=== PATIENT | male | born 1945 | race Caucasian/White ===

== ENCOUNTER 2020-10-06 23:23 | Emergency (ER) | payer MEDICARE, SELFPAY ==
--- NOTE | 2020-10-06 23:28 | XR_ITS ---
WS: [id number] Portable AP upright chest, 10/06/2020 Clinical Data: cp Comparison: Portable chest, 05/30/2017. Findings: No nodules, masses or effusions are seen. The heart is slightly enlarged. The pulmonary vas cularity is not increased. No pneumonia or pneumothorax is seen. The aortic arch and descending aorta are tortuous. There are calcified granulomas in the left hilum and periphery of the left lung. Monit or leads are on the chest wall. XR/XR chest 1V portable [id number] Impression: 1. Atherosclerosis and cardiomegaly. 2. Old granulomatous disease.
[2020-10-06 23:29] VITALS: BP 143/72; PULSE 59; RESP 16; TEMP 36.4; O2SAT 98; BMI 22.4
[2020-10-07] MEDS: aspirin 81 mg Chew Tablet 324 MG PO (00:10)
--- NOTE | 2020-10-07 00:14 | W.ED.CHESTPA ---
HPI - Chest Pain General: Chief Complaint: Chest Pain Stated Complaint: Chest Pain, left arm pain Time Seen by Provider: 10/06/20 23:29 Source: patient Mode of arrival: ambulatory Limitations: no limitations History of Present Illness: HPI narrative: 75-year-old male who states he is having chest pain tonight. He states it is a pressure type pain since resolved. States it went down his left arm. Denies any shortness of breath. Denies any vomiting or diarrhea. Denies any worsening improving factors that he knows of. He has a history of high blood pressure no coronary artery disease history. MD complaint: chest pain Associated symptoms: Deny abdominal pain, dyspnea, fever(s), nausea or vomiting Review of Systems Const: Denies: fever(s), chills, body aches or change in appetite Eyes: Denies: blurry vision or eye discomfort ENMT: Denies: throat pain or dental pain Card: Reports: chest pain Resp: Denies: dyspnea GI: Denies: abdominal pain, nausea, vomiting or diarrhea : Denies: dysuria Musc: Denies: neck pain or back pain Skin/Breast: Denies: rash Neuro: Denies: headache(s) Psych: Denies: depression Cliff/Lymph: Denies: easy bruising All/Imm: Denies: urticaria PFSH ED PFSH: Medical History (Updated 10/07/20 @ 02:41 by Torres Loving MD) Atrial fibrillation History of hypertension Physical Exam Const: COMMON NORMALS: no acute distress, patient oriented x3 and healthy appearing HENMT: COMMON NORMALS: normocephalic and atraumatic HEAD & SCALP: normocephalic and atraumatic Eye: COMMON NORMALS: Equal, round and reactive pupils present and EOMs intact bilaterally PUPIL: Yes Equal, round and reactive pupils present Neck/C-Spine: COMMON NORMALS: full ROM and supple Chest: COMMONS NORMALS: normal inspection of the chest and normal palpation of entire chest wall Resp: COMMON NORMALS: normal respiratory effort, No retractions, No use of accessory muscles and clear to auscultation bilaterally AUSCULTATION: clear to auscultation bilaterally Cardio: COMMON NORMALS: regular rate, regular rhythm and No murmurs present (Cardio) RATE: regular rate RHYTHM: regular rhythm GI: COMMON NORMALS: Normal to inspection, nondistended, normoactive bowel sounds present, Soft to palpation, non-tender and no masses PALPATION: Yes Soft to palpation Extremity: COMMON NORMALS: normal to inspection and full ROM Neuro: COMMON NORMALS: patient oriented x3, moves all extremities and no focal motor deficits Psych: COMMON NORMALS: mental status grossly normal, Normal thought process present and cooperative THOUGHT PROCESS: Normal thought process present Skin: COMMON NORMALS: no rashes or lesions noted and no wounds GENERAL SKIN EXAM: no rashes or lesions noted Course Vital Signs: Vital signs: Vital Signs Temperature 97.6 F 10/06/20 23:29 Pulse Rate 57 L 10/07/20 03:01 Respiratory Rate 17 10/07/20 03:01 Blood Pressure 116/71 10/07/20 03:01 Pulse Oximetry 97 10/07/20 03:01 MDM - Chest Pain MDM Narrative: Medical decision making narrative: Blaine presents here with chest pain. He is chest pain-free and his initial and repeat troponin are normal. I did offer him admission he states he feels improved and would like to follow-up with Dr. meng outpatient. We will set him appointment up with his interpretive naturalist Dr. Nazario and he is to return if worsening. He is return if he has any pain. He has no signs of pulmonary embolism or aortic dissection. He understands agrees to plan. Lab Data: Labs: Lab Results 10/07/20 10/07/20 10/07/20 Range/Units 00:17 00:17 00:17 WBC 3.0 L (4.0-10.0) 10^3/ uL RBC 3.83 L (4.1-5.3) 10^6/u L Hgb 12.0 (11.7-16.6) g/dL Hct 35.2 L (42.0-52.0) % MCV 91.9 (80-94) fL MCH 31.3 (28.0-34.0) pg MCHC 34.1 (30.0-36.0) g/dL RDW 11.9 L (12.1-15.1) % Plt Count 183 (130-400) 10^3/c mm MPV 10.1 (7.4-10.4) fL Neut % (Auto) 44.5 % Lymph % (Auto) 35.5 % [place] % (Auto) 15.8 % Eos % (Auto) 3.9 % Baso % (Auto) 0.3 % Neut # (Auto) 1.35 L (1.8-7.7) 10^3/u L Lymph # (Auto) 1.1 (0.8-4.8) 10^3/u L [place] # (Auto) 0.5 (0.2-0.9) 10^3/u L Eos # (Auto) 0.1 (0.0-0.8) 10^3/u L Baso # (Auto) 0.0 (0.0-0.1) 10^3/u L Nucleated RBC % (a uto) 0 % Nucleated RBCs # 0.0 /100WBC Sodium 134 L (136-145) mmol/L Potassium 4.3 (3.5-5.1) mmol/L Chloride 103 (98-107) mmol/L Carbon Dioxide 21 L (22-29) mmol/L Anion Gap 14.3 (5-19) BUN 22 (8-23) mg/dL Creatinine 1.2 (0.7-1.2) mg/dL GFR Calculation Not Reportable Glucose 99 (65-115) mg/dL Calculated Osmolal ity 281 L (285-295) mOsm/k g Calcium 9.0 (8.5-10.5) mg/dL Total Bilirubin 0.3 (0.15-1.2) mg/dL AST 25 (0-40) U/L ALT 20 (0-41) U/L Alkaline Phosphata se 47 (40-130) IU/L Troponin T Baselin e 21 H (0-15) ng/L Troponin T 120 Min chicken ranch (0-15) ng/L Delta Troponin T (0-10) ABS# Total Protein 8.8 H (6.6-8.7) g/dL Albumin 3.7 (3.5-5.2) g/dL Globulin 5.1 H (1.3-4.6) g/dL 10/07/20 Range/Units 02:03 WBC (4.0-10.0) 10^3/ uL RBC (4.1-5.3) 10^6/u L Hgb (11.7-16.6) g/dL Hct (42.0-52.0) % MCV (80-94) fL MCH (28.0-34.0) pg MCHC (30.0-36.0) g/dL RDW (12.1-15.1) % Plt Count (130-400) 10^3/c mm MPV (7.4-10.4) fL Neut % (Auto) % Lymph % (Auto) % [place] % (Auto) % Eos % (Auto) % Baso % (Auto) % Neut # (Auto) (1.8-7.7) 10^3/u L Lymph # (Auto) (0.8-4.8) 10^3/u L [place] # (Auto) (0.2-0.9) 10^3/u L Eos # (Auto) (0.0-0.8) 10^3/u L Baso # (Auto) (0.0-0.1) 10^3/u L Nucleated RBC % (a uto) % Nucleated RBCs # /100WBC Sodium (136-145) mmol/L Potassium (3.5-5.1) mmol/L Chloride (98-107) mmol/L Carbon Dioxide (22-29) mmol/L Anion Gap (5-19) BUN (8-23) mg/dL Creatinine (0.7-1.2) mg/dL GFR Calculation Glucose (65-115) mg/dL Calculated Osmolal ity (285-295) mOsm/k g Calcium (8.5-10.5) mg/dL Total Bilirubin (0.15-1.2) mg/dL AST (0-40) U/L ALT (0-41) U/L Alkaline Phosphata se (40-130) IU/L Troponin T Baselin e (0-15) ng/L Troponin T 120 Min chicken [place] 21.02 H (0-15) ng/L Delta Troponin T 0.02 (0-10) ABS# Total Protein (6.6-8.7) g/dL Albumin (3.5-5.2) g/dL Globulin (1.3-4.6) g/dL Imaging Data^: CXR: Attestation: I personally reviewed and interpreted this imaging study as follows: My impression: no acute abnormality EKG Data^: EKG 1: Attestation: I personally reviewed and interpreted this EKG as follows: EKG interpretation date: 10/06/20 EKG interpretation time: 23:28 Interpretation: sinus rosa m hr [address] or t wave abnormalities qrs 117 qtc 393 EKG 2: Attestation: I personally reviewed and interpreted this EKG as follows: EKG interpretation date: 10/07/20 EKG interpretation time: 01:25 Interpretation: sinus rosa m hr [address] or t wave abnormalities qrs 118 qtc 386 Discharge Plan Discharge Patient Disposition: Home Clinical Impression: Chest pain Condition: Stable Prescriptions: No Action nitroglycerin [Nitrostat] 0.4 mg tablet, sublingual 0.4 mg SUBLINGUAL Q5M PRNRF: 0 aspirin 325 mg tablet 325 mg PO DAILY RF: 0 metoprolol tartrate 25 mg tablet 12.5 mg PO BID Qty: 30 RF: 6 amlodipine 10 mg tablet 10 mg PO DIRECTED Qty: 45 RF: 3 Discharge Orders: Discharge ED (Routine); Ordered 10/07/20 Ordered By: Torres Loving Referrals: Yarelis uMrray FNP [Primary Care Provider] - Baldomero Smith MD [Physician] - 1-3 days Discharge Diet: Advance as tolerated Discharge Activity: Resume usual activity Patient Instructions: Chest Pain (ED) Coding Level of Care Code ED Electrical Continuity Tester for Chg Fwd Exam Comprehensive
[2020-10-07 00:24] LABS: Basophils % 0.3 %; Eosinophils # 0.1 10^3/uL (0.0-0.8); Eosinophils % 3.9 %; Hematocrit 35.2 % (42.0-52.0); Lymphocytes # 1.1 10^3/uL (0.8-4.8); Lymphocytes % 35.5 %; Mean Corpuscular HGB Conc 34.1 g/dL (30.0-36.0); Mean Corpuscular Hemoglobin 31.3 pg (28.0-34.0); Mean Corpuscular Volume 91.9 fL (80-94); Mean Platelet Volume 10.1 fL (7.4-10.4); Monocytes # 0.5 10^3/uL (0.2-0.9); Monocytes % 15.8 %; Neutrophils # 1.35 10^3/uL (1.8-7.7); Neutrophils % 44.5 %; Nucleated Red Blood Cells % 0 %; Platelet Count 183 10^3/cmm (130-400); Red Blood Count 3.83 10^6/uL (4.1-5.3); Red Cell Distribution Width 11.9 % (12.1-15.1)
[2020-10-07 00:43] LABS: Alanine Aminotransferase 20 U/L (0-41); Albumin Level 3.7 g/dL (3.5-5.2); Alkaline Phosphatase 47 IU/L (40-130); Aspartate Amino Transferase 25 U/L (0-40); Blood Urea Nitrogen 22 mg/dL (8-23); Carbon Dioxide 21 mmol/L (22-29); Chloride 103 mmol/L (98-107); Globulin 5.1 g/dL (1.3-4.6); Glucose 99 mg/dL (65-115); Osmolality Calculated 281 mOsm/kg (285-295); Sodium 134 mmol/L (136-145); Total Bilirubin 0.3 mg/dL (0.15-1.2); Total Protein 8.8 g/dL (6.6-8.7)
[2020-10-07 00:44] LABS: Troponin(5th) Baseline 21 ng/L (0-15)
[2020-10-07 00:47] LABS: Anion Gap 14.3 (5-19); Potassium 4.3 mmol/L (3.5-5.1)
--- NOTE | 2020-10-07 01:28 | ECG_ITS ---
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 Measurements Intervals [place] Rate: 53 P: 51 [place]: 215 QRS: 11 QRSD: 118 T: 55 QT: 403 QTc: 380 Interpretive Statements SINUS BRADYCARDIA WITH FIRST DEGREE AV BLOCK MODERATE INTRAVENTRICULAR CONDUCTION DELAY [110+ ms QRS DURATION] Compared to ECG 05/30/2017 12:20:10 First degree AV block now present Intraventricular conduction delay now present Electronically Signed On 10-08-2020 11:10:57 GAMING CASHIER by Jeffery Presley M.D. [id number]
[2020-10-07 01:29] VITALS: BP 118/73; PULSE 52; RESP 14; O2SAT 97
[2020-10-07 02:00] VITALS: BP 119/62; PULSE 53; RESP 22; O2SAT 97
[2020-10-07 02:29] LABS: Troponin 5 2HR 21.02 ng/L (0-15); Troponin 5 2HR Delta 0.02 ABS# (0-10)
[2020-10-07 03:01] VITALS: BP 116/71; PULSE 57; RESP 17; O2SAT 97
--- NOTE | 2020-10-07 11:17 | DCPLANNER ---
Tanner cantor had message to schedule a follow up with [facility]. biodiesel engineering manager called [facility], spoke with Jackie, gave clinic patients information. A follow up appointment is scheduled for Sunday, October 11, 2020 at 1:15 with SOIL CHECKER, Sharon. biodiesel engineering manager called patient with appointment information at [phone], unable to speak with patient at this time, a voicemail was left for patient to return case management social worker phone call.
--- NOTE | 2020-11-03 07:58 | DCPLANNER ---
Patient had a follow up appointment scheduled for 10.11.20 with Sharon Bansal at [facility] - appointment was cancelled.
== END 2020-10-07 02:59 | disposition home or self-care (01) ==
PROVIDERS: Emergency Provider Emergency Medicine; PCP Nurse Practitioner Family
DX: R07.9 Chest pain, unspecified (principal); Z79.82 Long term (current) use of aspirin; I10 Essential (primary) hypertension; I48.91 Unspecified atrial fibrillation
CPT/HCPCS: 12345; 36415; 71045; 80053; 84484; 85025; 93005; 99283; 99284

== ENCOUNTER → 2022-01-09 14:43 | Outpatient (BNVA) | payer MEDICARE, SELFPAY | PROVIDERS: PCP Nurse Practitioner Family; Visit Provider Internal Medicine Cardiovascular Disease | DX: I48.0 Paroxysmal atrial fibrillation (principal); I10 Essential (primary) hypertension; Z87.891 Personal history of nicotine dependence | CPT/HCPCS: 99214 ==

== ENCOUNTER 2022-08-20 09:53 | Observation (INO) | payer MEDICARE, SELFPAY ==
[2022-08-20] VITALS (8 sets, daily range): BP systolic 120–143; BP diastolic 67–82; PULSE 50–59; RESP 16–21; TEMP 36.4; O2SAT 94–100; BMI 22.4
--- NOTE | 2022-08-20 10:08 | ECG_ITS ---
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 Measurements Intervals [place] Rate: 46 P: 58 [place]: 215 QRS: 44 QRSD: 99 T: 65 QT: 418 QTc: 368 Interpretive Statements SINUS BRADYCARDIA WITH FIRST DEGREE AV BLOCK POSSIBLE LEFT ATRIAL ENLARGEMENT [-0.1mV P-WAVE IN V1/V2] MODERATE ST DEPRESSION [0.05+ mV ST DEPRESSION Compared to ECG 10/07/2020 01:25:08 ST (T wave) deviation now present Intraventricular conduction delay no longer present Electronically Signed On 08-20-2022 19:48:13 REMEDIAL READING TEACHER by Jeffery Presley M.D. [id number]
--- NOTE | 2022-08-20 10:17 | XR_ITS ---
WS: [id number] Exam: XR chest 1V portable [id number] Date/Time of Exam: 08/20/2022 10:27 AM Reason For Exam: chest pain Comparison 10/06/2020. Mild cardiac enlargement unchanged. The lungs are clear and fully expanded. Ther e is widening of the superior mediastinum and mild leftward deviation of the trachea suggesting a med iastinal mass. No pleural effusion seen. Regional bony elements are intact. Monitoring leads superimp ose the chest. XR/XR chest 1V portable [id number] IMPRESSION: 1. Mild cardiac enlargement unchanged. No acute cardiopulmonary process noted. 2. Widening of the superior mediastinum with leftward deviation of the trachea suggesting a mediastinal mass. The appearance shows little change since 05/30/20 17. This may be a chronic finding such as a goiter. Contrast CT scanning of the chest might be considered for further workup.
[2022-08-20] MEDS: aspirin 81 mg Chew Tablet 324 MG PO (10:26)
--- NOTE | 2022-08-20 10:35 | W.ED.CHESTPA ---
HPI - Chest Pain General: Chief Complaint: Chest Pain Stated Complaint: chest pain Time Seen by Provider: 08/20/22 10:09 Source: patient Mode of arrival: ambulatory History of Present Illness: 69-year-old male presents emergency room with complaint of episodes of chest pain today. He decoupled brief episodes of chest pain very transient in nature they occurred while at rest. He tells me he had some short of cardiac evaluation in the past. The only thing I could find is an echocardiogram once he was done in 2017 he has no known history of coronary disease he is completely pain-free at this time. GeneralPatient describes a sensation as a burning sensation he felt weak he was short of breath and transiently nauseous. Resolve spontaneously within a few minutes. No recent cough fever sweats chills nausea vomiting diarrhea. MD complaint: chest pain Onset (ago): hour(s) Timing of current episode: episodic Onset: during rest Pain location: substernal Pain radiation: none Severity: mild Quality: sharp Relieving factors: nothing Exacerbating factors: nothing Associated symptoms: Reports diaphoresis, dyspnea and nausea; Deny abdominal pain, fever(s), leg edema, palpitations, sense of impending doom, syncope or vomiting Treatment prior to arrival: none Review of Systems Const: Reports: diaphoresis; Denies: fever(s), chills, fatigue or malaise ENMT: Denies: throat pain, ear or mastoid pain, nasal discharge or nasal congestion Card: Denies: chest pain, palpitations, irregular heart rhythm, edema or syncope Resp: Reports: dyspnea; Denies: productive cough, non-productive cough or wheezing GI: Reports: nausea; Denies: abdominal pain or vomiting : Denies: flank pain, dysuria, urinary frequency or urinary urgency Skin/Breast: Denies: rash or pruritus PFS ED PFSH: Medical History (Updated 08/20/22 @ 16:47 by Danielle Mendez MD) Atrial fibrillation History atrial fibrillation s/p ablation, in sinus rhythm, takes whole aspirin, declined consideration for anticoagulation in past Benign essential HTN History of syncope with moderate to severe pain Surgical History (Updated 08/20/22 @ 16:43 by Danielle Mendez MD) No pertinent past surgical history No history of surgery S/P ablation of atrial fibrillation Family History (Updated 08/20/22 @ 16:46 by Danielle Mendez MD) Father , of heart attack age 68 CAD (coronary artery disease), Onset Age: 68 Family/Other CAD (coronary artery disease) uncle Grandfather Stroke Denies family history of Diabetes Clotting disorder Dementia Chronic kidney disease (CKD) Suicide Anesthesia complication Bleeding disorder Lung disease Cancer Social History (Updated 08/20/22 @ 16:44 by Danielle Mendez MD) Smoking and tobacco status: former smoker Alcohol intake: current Alcohol use comment: rare beer Substance/Drug Use: never Lives independently: Yes Household members: spouse Marital status: Current occupational status: employed 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 Physical Exam Const: GENERAL APPEARANCE: cooperative and comfortable ORIENTATION/CONSCIOUSNESS: Yes awake, Yes oriented to person, Yes oriented to place and Yes oriented to time HENMT: COMMON NORMALS: normocephalic, atraumatic and hearing grossly normal bilaterally HEAD & SCALP: normocephalic and atraumatic Resp: COMMON NORMALS: normal respiratory effort, No retractions, No use of accessory muscles and clear to auscultation bilaterally AUSCULTATION: clear to auscultation bilaterally Cardio: COMMON NORMALS: regular rate, regular rhythm and No murmurs present (Cardio) RATE: regular rate RHYTHM: regular rhythm GI: COMMON NORMALS: Soft to palpation and No hepatosplenomegaly present AUSCULTATION: Yes normoactive bowel sounds PALPATION: Yes Soft to palpation, No Tenderness to palpation present (GI), No Guarding due to palpation present (GI) and Yes No hepatosplenomegaly present Extremity: COMMON NORMALS: normal to inspection, capillary refill normal, no clubbing, cyanosis or edema, no calf tenderness and no pedal edema Neuro: SENSORIUM/ORIENTATION: Yes oriented to person, Yes oriented to place and Yes oriented to time Skin: COMMON NORMALS: no rashes or lesions noted GENERAL SKIN EXAM: no rashes or lesions noted Course Vital Signs: Vital signs: Vital Signs Temperature 97.6 F 08/20/22 09:58 Pulse Rate 50 L 08/20/22 15:00 Respiratory Rate 20 H 08/20/22 14:00 Blood Pressure 120/74 08/20/22 15:00 Pulse Oximetry 94 08/20/22 15:00 Oxygen Delivery Me thod 08/20/22 13:30 MDM - Chest Pain Medical Decision Making Labs imaging and EKG reviewed. EKG does not show any acute ST changes. He does have a positive delta Trope of nearly +5. Given his history and his presentation he follows an intermediate risk category and should be kept on observation. He will need early cardiac testing. Medical Records I reviewed the patient's medical records. Lab Data I reviewed the patient's lab results. 08/20/22 10:35 08/20/22 10:35 Radiology Impressions Chest X-Ray 08/20/22 10:17 IMPRESSION: 1. Mild cardiac enlargement unchanged. No acute cardiopulmonary process noted. 2. Widening of the superior mediastinum with leftward deviation of the trachea suggesting a mediastinal mass. The appearance shows little change since 05/30/2017. This may be a chronic finding such as a goiter. Contrast CT scanning of the chest might be considered for further workup. Laboratory Results WBC 4.3 10^3/uL (4.0-10.0) 08/20/22 10:35 RBC 4.06 10^6/uL (4.1-5.3) L 08/20/22 10:35 Hgb 12.8 g/dL (11.7-16.6) 08/20/22 10:35 Hct 37.2 % (42.0-52.0) L 08/20/22 10:35 MCV 91.6 fl (80-94) 08/20/22 10:35 MCH 31.5 pg (28.0-34.0) 08/20/22 10:35 MCHC 34.4 g/dL (30.0-36.0) 08/20/22 10:35 RDW 11.9 % (12.1-15.1) L 08/20/22 10:35 Plt Count 186 10^3/cmm (130-400) 08/20/22 10:35 MPV 10.1 fL (7.4-10.4) 08/20/22 10:35 Neut % (Auto) 66.3 % 08/20/22 10:35 Lymph % (Auto) 25.3 % 08/20/22 10:35 [place] % (Auto) 7.2 % 08/20/22 10:35 Eos % (Auto) 0.2 % 08/20/22 10:35 Baso % (Auto) 0.5 % 08/20/22 10:35 Neut # (Auto) 2.85 10^3/uL (1.8-7.7) 08/20/22 10:35 Lymph # (Auto) 1.1 10^3/uL (0.8-4.8) 08/20/22 10:35 [place] # (Auto) 0.3 10^3/uL (0.2-0.9) 08/20/22 10:35 Eos # (Auto) 0.0 10^3/uL (0.0-0.8) 08/20/22 10:35 Baso # (Auto) 0.0 10^3/uL (0.0-0.1) 08/20/22 10:35 Nucleated RBC % (auto) 0 % 08/20/22 10:35 Nucleated RBCs # 0.0 /100WBC 08/20/22 10:35 Sodium 128 mmol/L (136-145) L 08/20/22 10:35 Potassium 4.1 mmol/L (3.5-5.1) 08/20/22 10:35 Chloride 97 mmol/L (98-107) L 08/20/22 10:35 Carbon Dioxide 22 mmol/L (22-29) 08/20/22 10:35 Anion Gap 13.1 (5-19) 08/20/22 10:35 BUN 15 mg/dL (8-23) 08/20/22 10:35 Creatinine 1.1 mg/dL (0.7-1.2) 08/20/22 10:35 GFR Calculation Not Reportable 08/20/22 10:35 Glucose 103 mg/dL (65-115) 08/20/22 10:35 Calculated Osmolality 267 mOsm/kg (285-295) L 08/20/22 10:35 Calcium 9.5 mg/dL (8.5-10.5) 08/20/22 10:35 Total Bilirubin 0.6 mg/dL (0.15-1.2) 08/20/22 10:35 AST 22 U/L (0-40) 08/20/22 10:35 ALT 17 U/L (0-41) 08/20/22 10:35 Alkaline Phosphatase 49 U/L (40-130) 08/20/22 10:35 Troponin T Baseline 18 ng/L (0-15) H 08/20/22 10:35 Troponin T 120 Minute 22.94 ng/L (0-15) H 08/20/22 12:30 Delta Troponin T 4.94 ABS# (0-10) 08/20/22 12:30 NT-Pro-B Natriuret Pep 181 pg/mL (0-450) 08/20/22 12:30 Total Protein 9.3 g/dL (6.6-8.7) H 08/20/22 10:35 Albumin 3.8 g/dL (3.5-5.2) 08/20/22 10:35 Globulin 5.5 g/dL (1.3-4.6) H 08/20/22 10:35 Discharge Plan Discharge Patient Disposition: Placed in Observation Clinical Impression: Chest pain, Benign essential HTN, Elevated troponin I level Condition: Stable Prescriptions: No Action nitroglycerin [Nitrostat] 0.4 mg tablet, sublingual 0.4 mg SUBLINGUAL Q5M PRN (Reason: Chest Pain) Rx Instructions: do not exceed 3 doses per episode aspirin 325 mg tablet 325 mg PO DAILY amlodipine 10 mg tablet See Rx Instructions .ROUTE .COMPLEX Rx Instructions: TAKE 1 TABLET BY MOUTH EVERY MORNING AND ONE-HALF TABLET EVERY NIGHT AT BEDTIME metoprolol tartrate 25 mg tablet 12.5 mg PO BID Referrals: Yarelis Murray FNP [Primary Care Provider] - Coding Level of Care Code ED Assistant Womens Volleyball Coach for Dilciag Fwd Exam Detailed
[2022-08-20 10:45] LABS: Basophils % 0.5 %; Eosinophils % 0.2 %; Hematocrit 37.2 % (42.0-52.0); Hemoglobin 12.8 g/dL (11.7-16.6); Lymphocytes # 1.1 10^3/uL (0.8-4.8); Lymphocytes % 25.3 %; Mean Corpuscular HGB Conc 34.4 g/dL (30.0-36.0); Mean Corpuscular Hemoglobin 31.5 pg (28.0-34.0); Mean Corpuscular Volume 91.6 fl (80-94); Mean Platelet Volume 10.1 fL (7.4-10.4); Monocytes # 0.3 10^3/uL (0.2-0.9); Monocytes % 7.2 %; Neutrophils # 2.85 10^3/uL (1.8-7.7); Neutrophils % 66.3 %; Nucleated Red Blood Cells % 0 %; Platelet Count 186 10^3/cmm (130-400); Red Blood Count 4.06 10^6/uL (4.1-5.3); Red Cell Distribution Width 11.9 % (12.1-15.1); White Blood Count 4.3 10^3/uL (4.0-10.0)
[2022-08-20 11:03] LABS: Troponin(5th) Baseline 18 ng/L (0-15)
[2022-08-20 11:06] LABS: Alanine Aminotransferase 17 U/L (0-41); Albumin Level 3.8 g/dL (3.5-5.2); Alkaline Phosphatase 49 U/L (40-130); Anion Gap 13.1 (5-19); Aspartate Amino Transferase 22 U/L (0-40); Blood Urea Nitrogen 15 mg/dL (8-23); Calcium 9.5 mg/dL (8.5-10.5); Carbon Dioxide 22 mmol/L (22-29); Chloride 97 mmol/L (98-107); Globulin 5.5 g/dL (1.3-4.6); Glucose 103 mg/dL (65-115); Osmolality Calculated 267 mOsm/kg (285-295); Potassium 4.1 mmol/L (3.5-5.1); Sodium 128 mmol/L (136-145); Total Bilirubin 0.6 mg/dL (0.15-1.2); Total Protein 9.3 g/dL (6.6-8.7)
--- NOTE | 2022-08-20 12:52 | ECG_ITS ---
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 Measurements Intervals [place] Rate: 52 P: 59 [place]: 214 QRS: 44 QRSD: 101 T: 69 QT: 413 QTc: 387 Interpretive Statements SINUS BRADYCARDIA WITH FIRST DEGREE AV BLOCK POSSIBLE LEFT ATRIAL ENLARGEMENT [-0.1mV P-WAVE IN V1/V2] Compared to ECG 08/20/2022 10:08:59 ST (T wave) deviation no longer present Electronically Signed On 08-20-2022 19:49:31 MAINTENANCE SERVICE SUPERVISOR by Jeffery Presley M.D. [email or web address]/[id number]
[2022-08-20 12:57] LABS: Troponin 5 2HR 22.94 ng/L (0-15); Troponin 5 2HR Delta 4.94 ABS# (0-10)
[2022-08-20] MEDS: nitroglycerin 1 gm/inch oint Pkt 0.5 INCH TOPICAL ×2 (13:44→20:57)
[2022-08-20] MEDS: enoxaparin 80 mg/0.8 mL Syringe SUBCUT (13:44)
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
--- NOTE | 2022-08-20 16:26 | USCV_ITS ---
Blaine Hernandez Age: 77 Gender: M : 1945 Exam Date: 08/20/2022 16:44 Ordering Phys: Danielle Mendez MD Technologist: Melquiades Knowles [place] [facility] [place]: chest pain BP: 143 / 82 HR: 49 Rhythm: Sinus Technical Quality: Adequate MEASUREMENTS (Male / Female) Normal Values 2D ECHO LV Diastolic Diameter PLAX 4.8 cm 4.2 - 5.9 / 3.9 - 5.3 cm LV Systolic Diameter PLAX 2.8 cm IVS Diastolic Thickness 0.9 cm 0.6 - 1.0 / 0.6 - 0.9 cm IVS Systolic Thickness 1.0 cm LVPW Diastolic Thickness 0.9 cm 0.6 - 1.0 / 0.6 - 0.9 cm LVPW Systolic Thickness 1.3 cm LVOT Diameter 2.0 cm LV Ejection Fraction 2D Teich 72.5 % LV Ejection Fraction MOD 2C 69.8 % LV Ejection Fraction 2C AL 69.3 % LA Diameter 3.2 cm LA Width 3.0 cm LA Height 4.0 cm RA Width 3.4 cm RA Height 4.6 cm Aorta at Sinotubular Diameter 2.8 cm IVC Diameter 2.0 cm M-MODE Aortic Annulus Diameter 3.1 cm LA Ao Ratio MM 1.0 MV E Point Septal Separation 0.6 cm DOPPLER AV Peak Velocity 146.7 cm/s LVOT Peak Velocity 81.0 cm/s AV Area Cont Eq vti 1.8 cm squared AV Area Cont Eq pk 1.8 cm squared MV Area PHT 3.3 cm squared Mitral E to A Ratio 0.6 MV E' Velocity 22.0 cm/s Mitral E to MV E' Ratio 6.5 Mitral E to LV E' Lateral Ratio 6.5 Mitral E to LV E' Septal Ratio 6.5 TR Peak Velocity 261.7 cm/s TR Peak Gradient 27.4 mmHg TR Mean Velocity 192.3 cm/s TR Mean Gradient 16.6 mmHg TR Velocity Time Integral 68.4 cm Right Atrial Pressure 3.0 mmHg Pulmonary Artery Systolic Pressu 30.4 mmHg PV Peak Velocity 98.0 cm/s RV Acceleration Time 0.1 s RV Ejection Time 0.3 s RV AcT/ET 0.4 FINDINGS Left Ventricle Left ventricle is normal in size. LV systolic function is normal with EF of 55 to 60%. No regional wall motion abnormalities are seen. Grade 1 diastolic dysfunction Right Ventricle Normal in size and function Right Atrium Normal in size Left Atrium Normal in size Mitral Valve Structurally normal mitral valve. Mild mitral regurgitation. Aortic Valve Structurally normal aortic valve. Mild aortic regurgitation. No significant stenosis. Tricuspid Valve Mild tricuspid regurgitation. Pulmonary artery systolic pressure is normal Pulmonic Valve Not well visualized. Mild pulmonic regurgitation. Pericardium Normal Aorta Normal in size IVC Appears to be normal CONCLUSIONS LV systolic function is normal with EF 55 to 60%. Grade 1 diastolic dysfunction Mild mitral regurgitation Mild aortic regurgitation Mild tricuspid regurgitation Mild pulmonic regurgitation Compared to prior echocardiogram from 2017, no significant changes are seen Jeffery Presley MD (Electronically Signed) Final Date: 21 August 2022 11:09 S
--- NOTE | 2022-08-20 16:29 | CTR_ITS ---
PROCEDURE INFORMATION: Exam: CT Chest With Contrast; Diagnostic Exam date and time: 08/20/2022 6:02 PM Age: 77 years old Clinical indication: Abnormal findings; Abnormal radiologic exam of lung or chest; Additional info: Widened mediastinum with deviated trachea TECHNIQUE: Imaging protocol: Diagnostic computed tomography of the chest with contrast. Radiation optimization: All CT scans at this facility use at least one of these dose optimization techniques: automated exposure control; mA and/or kV adjustment per patient size (includes targeted exams where dose is matched to clinical indication); or iterative reconstruction. Contrast material: OMNIPAQUE 350; Contrast volume: 95 ml; Contrast route: INTRAVENOUS (IV); COMPARISON: CR XR chest 1V portable [id number] 08/20/2022 10:44 AM RADIATION DOSE METRICS: Total DLP (mGy-cm): 258.76 FINDINGS: Thyroid: Right lobe of thyroid contains a 49 x 39 mm enhancing mass, with mild leftward deviation of trachea. No overt tracheal compression. Lungs: Minute left midlung benign calcified nodule. The lungs show no dominant mass or spiculated nodule. No consolidation. Minimal RML atelectasis. Pleural spaces: No pneumothorax. No pleural effusion. Heart: The heart is large. No pericardial effusion. Lymph nodes: No bulky mediastinal or hilar lymphadenopathy noted. Vasculature: Thoracic arch measures up to about 3.6 cm. No dissection. Bones/joints: No acute fracture. Soft tissues: Unremarkable. CT/CT chest w con* [id number] IMPRESSION: 1. Responsible for the history there is a 5 cm right thyroid mass. This needs to be worked up. Consider need for ultrasound and/or FNA. This causes mild leftward tracheal deviation but no real compression. No overt lymphadenopathy seen. 2. Nothing else acute is visualized. Full details are given above. 3. 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 COMMENTS: Consistent with the [employer]'s Incidental Findings Committee white paper (J Am Gudelia Radiol 2015): In patients aged 35 years and older with an incidental thyroid nodule equal to or greater than 1.[address], MRI or extrathyroidal US, further evaluation with dedicated thyroid US is recommended for patients with normal life expectancy and without comorbidities. For smaller nodules without suspicious features, no further evaluation or follow up is recommended.
[2022-08-20 17:00] LABS: NT Pro B Type Natriuretic Pept 181 pg/mL (0-450)
[2022-08-20 17:21] LABS: Troponin 5 6HR 16.98 ng/L (0-15)
[2022-08-20 17:22] LABS: Troponin 5 6HR Delta -1.02 ng/L (0-12)
[2022-08-20 17:30] LABS: Uric Acid 6.4 mg/dL (3.4-7.0)
--- NOTE | 2022-08-20 17:57 | PC.NURSE ---
attempted report to [facility] [id number], nurse was not available to take report at that time
[2022-08-20] MEDS: iohexol 350 mg/mL 500 mL Btl (per mL) IV (18:18)
[2022-08-20] MEDS: metoprolol tartrate 25 mg Tablet 12.5 MG PO (20:58)
[2022-08-20 21:01] LABS: Creatinine Urine, Random 101 mg/dL (39-259); Urine Random Sodium 69 mmol/L
[2022-08-21] VITALS: BP 138/82; PULSE 78; RESP 16; TEMP 36.9; O2SAT 94
[2022-08-21] MEDS: nitroglycerin 1 gm/inch oint Pkt 0.5 INCH TOPICAL (02:00)
[2022-08-21] MEDS: enoxaparin 80 mg/0.8 mL Syringe 70 MG SUBCUT (02:01)
[2022-08-21 04:00] VITALS: BP 116/63; PULSE 44; RESP 17; TEMP 36.6; O2SAT 95
[2022-08-21 05:30] LABS: INR 1.14 (0.8-1.2)
[2022-08-21 05:31] LABS: Partial Thromboplastin Time 36.6 SECONDS (23.9-36.7)
[2022-08-21 05:49] LABS: Alanine Aminotransferase 16 U/L (0-41); Albumin Level 3.5 g/dL (3.5-5.2); Alkaline Phosphatase 43 U/L (40-130); Anion Gap 13.5 (5-19); Aspartate Amino Transferase 21 U/L (0-40); Blood Urea Nitrogen 17 mg/dL (8-23); Calcium 9.3 mg/dL (8.5-10.5); Carbon Dioxide 22 mmol/L (22-29); Chloride 104 mmol/L (98-107); Chol HDL Ratio 6.07 mg/dL (1.0-5.00); Cholesterol 176 mg/dL (0-200); Globulin 4.7 g/dL (1.3-4.6); Glucose 98 mg/dL (65-115); HDL Cholesterol 29 mg/dL (60-100); LDL Cholesterol Calculated 128 mg/dL (50-129); LDL HDL Ratio 4.41 RATIO (0.00-3.22); Magnesium 2.1 mg/dL (1.7-2.3); Osmolality Calculated 282 mOsm/kg (285-295); Phosphorus 3.1 mg/dL (2.5-4.5); Potassium 4.5 mmol/L (3.5-5.1); Sodium 135 mmol/L (136-145); Thyroid Stimulating Hormone 7.25 uIU/mL (0.27-4.20); Total Bilirubin 0.5 mg/dL (0.15-1.2); Total Protein 8.2 g/dL (6.6-8.7); Triglycerides 93 mg/dL (0-150)
--- NOTE | 2022-08-21 06:01 | PC.NURSE ---
Nurse was notified about patients heart rate being 44.
[2022-08-21 06:16] VITALS: PULSE 47
--- NOTE | 2022-08-21 06:49 | ECG_ITS ---
[facility] Test Date: 2022-08-21 Pat Name: Blaine Hernandez Department: Room: 278 Gender: Male Swager Operator: Amie Solorio : 1945 Requested By: Danielle Mendez Order Number: [id number] Willard MD: Hansa Yoon M.D. Interpretive Statements NAME OF STUDY: LEXISCAN SESTAMIBI STRESS TEST INDICATION: Chest Pain PROCEDURE: At the baseline, the blood pressure was 130/75 mmHg, oxygen saturation 97% with a heart rate of 54 bpm. The electrocardiogram showed sinus bradycardia, normal axis with nonspecific ST depression. The Lexiscan was infused over a period of 20 seconds. A total of 0.4 milligrams of Lexiscan was infused. The stress phase was continued for a total of 5 minutes. Heart rate at the end of the stress phase was 50 bpm, oxygen saturation 99% with a blood pressure of 107/59 mmHg. The EKG at the peak infusion revealed sinus bradycardia with no significant ST-T wave changes. Sestamibi was injected 20 seconds after the Lexiscan infusion. Blood pressure at the end of the recovery phase was 97/59 mmHg, oxygen saturation 96% with a heart rate of 51 beats per minute. CONCLUSION: 1. No significant EKG changes with the LexiScan infusion. 2. No LexiScan induced chest pain or cardiac arrhythmia. 3. Normal blood pressure and heart rate response. 4. Sestamibi/sestamibi perfusion scan pending; see separate report. Electronically Signed On 08-21-2022 12:54:34 FUGITIVE INVESTIGATOR by Hansa Yoon M.D. [id number]
--- NOTE | 2022-08-21 07:00 | NMCV_ITS ---
NM mindi perf SPECT r/s* [id number] Blaine Hernandez Age: 77 Gender: M : 1945 Exam Date: 08/21/2022 06:47 Ordering Phys: Danielle Mendez MD Technologist: JOSEP Lagunas Exam Location: [facility] Indications: CHEST PAIN STRESS TEST Please see separate stress test report in [facility] for full findings IMAGE PROTOCOL Rest/Stress 1 Lexiscan Day Radiopharmaceutical Dose (mCi) Administration Site Administered by Rest: Tc-99m 10.8 IV JOSEP Lee Sestamibi Stress:Tc-99m 32.8 IV JOSEP Lee Sestamibi Rest: 21-Aug-2022 60 Discovery 630 Stress: 21-Aug-2022 30 Discovery 630 0.4mg Lexiscan. Images obtained in supine and prone position. SPECT RESULTS Technical Quality: Excellent Raw Data Analysis: Normal Image Corrections: No attenuation or motion correction applied Summed Stress Score: 0 Summed Rest Score: 3 Summed Difference Score: 0 PERFUSION FINDINGS Small sized perfusion abnormality of mild severity of mid to apical inferior and mid inferoseptal wall on rest images with improved tracer uptake on stress images. This is suggestive of attenuation artifact. FUNCTIONAL RESULTS (calculated via Gated SPECT) Stress Image LV EF (%): 64 Stress EDV (mL):107 TID: 1 Stress ESV (mL):39 FUNCTIONAL FINDINGS: The left ventricle is normal in size. Transient Ischemia Dilatation of 1. The left ventricular ejection fraction is normal with a value of 64%. There is normal left ventricular wall thickening. IMPRESSIONS 1. Myocardial perfusion imaging is normal. Attenuation artifact noted in inferior wall. 2. Overall left ventricular systolic function is normal without regional wall motion abnormalities, LVEF=64%. 3. EKG portion of the study will be reported separately. 4. Scan indicates low risk for cardiac events. Hansa Yoon MD (Electronically Signed) Final Date: 21 August 2022 12:48 S
[2022-08-21] MEDS: regadenoson 0.4 Mg/5 ml Syringe IVP (07:05)
[2022-08-21 07:46] VITALS: BP 97/59; PULSE 51
--- NOTE | 2022-08-21 10:20 | PC.CHAP ---
Pastoral Care Encounter/Spiritual Assessment Type of Contact [] Declined breakfast host visit [] Patient/Family/Request visit [] Outpatient visit [] Follow-up visit [] Physician referral [] Code/Alert [x] Routine visit [] Staff referral [] Actively dying [x] Patient sleeping [] Family support [] [] Out of room [] Palliative care [] [] Receiving care in room [] Pre-surgical visit [] Trauma [] Long length of stay [] ICU visit [] Other: Relational/Emotional Strength [] Patient feels connected with others/family/visitors/staff [] Distress [] Loneliness/isolation [] Abandonment Spirituality of Patient [] Person of Nelia [] Attends Pentecostal of their Nelia [] Believes in Prayer [] Reads Bible or Hinduism materials [] There are Spiritual issues to be addressed Tankage Grinder Interventions [] Prayer [] Active listening [] Non-anxious presence [] Spiritual/emotional support [] Crisis/trauma care [] Spiritual counseling [] Bereavement support [] Provided bereavement packet [] Provided Bible/devotional materials [] Provided toy/stuffed animal, coloring book to patient or family member [] Provided Communion [] Anointing/[place] [] Salvation [] Completed spiritual assessment [] Other: Impact on Illness or Injury [] Angry [] Fearful [] Anxious [] Often cries [] Exhaustion [] Unable to work [] Unable to attend latter day [] Unable to walk/stand [] Unable to read [] Unable to drive [] Unable to eat/drink [] Unable to sleep [] Unable to be with family [] Patient intubated [] Other: Summary Time spent with patient
[2022-08-21] MEDS: metoprolol tartrate 25 mg Tablet 12.5 MG PO (10:36)
[2022-08-21] MEDS: aspirin 325 mg Tablet PO (10:36)
[2022-08-21 11:55] VITALS: BP 102/59; PULSE 54; RESP 17; TEMP 36.6; O2SAT 97
--- NOTE | 2022-08-21 13:07 | PM.DCS ---
Discharge Providers Date of Admission: 08/20/22 16:30 Date of Discharge: August 21, 2022 Attending Provider at Admission: Danielle Mendez MD Attending Provider at Discharge: Yonatan Posada MD Primary Care Provider: BETZY Mendoza Diagnoses at Discharge Discharge Diagnosis (1) Chest pain: Status: Acute (2) Mediastinal widening: Status: Acute (3) Hyponatremia with decreased serum osmolality: Status: Acute (4) Benign essential HTN: Status: Chronic (5) Atrial fibrillation: Status: Chronic Qualifiers: Atrial fibrillation type: paroxysmal Qualified Code(s): I48.0 - Paroxysmal atrial fibrillation Permanent problem details: History atrial fibrillation s/p ablation, in sinus rhythm, takes whole aspirin, declined consideration for anticoagulation in past Reason for Visit Reason for Visit: chest pain Hospital Course Hospital Course ExtremityPatient presented to the hospital with concerns of chest discomfort, that was somewhat atypical in nature. Sternal widening, hyponatremia. Troponin was slightly high but did not have a significantly concerning delta. EKG was not diagnostic. He was placed in the hospital with serial troponins. An echocardiogram was obtained which demonstrated no significant wall motion abnormalities, intact ejection fraction. A nuclear stress test was performed on August 21 which was low risk and no significant reversible ischemia. 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 His sodium was low on admission, and this corrected quickly on next blood check to near normal at 135. TSH was slightly high, and can be evaluated further as an outpatient by primary care provider and ENT. Cholesterol was also checked demonstrating an LDL of 130. 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 ENT referral was also given. Norvasc was decreased slightly for blood pressures. Telemetry while in hospital demonstrated no significant arrhythmias. He was slightly bradycardic. From my understanding this is chronic. Patient and his were given time to ask questions, and agreed with the plan set forth in the discharge. Physical Exam Narrative: General exam no distress Neck is supple no lymphadenopathy or thyromegaly Cardiovascular regular rate and rhythm, slightly bradycardia, no murmur Lungs clear no wheezing or crackles Abdomen is soft nontender positive bowel sounds Extremities no cyanosis clubbing or edema Skin no rash Discharge Data Studies Completed and Pending Completed Studies During Hospitalization Category Date Time Status CT chest w con* [id number] Routine Cat Scan 08/20/22 16:29 Completed Cardiac Stress Test MIBI [Sestamibi Stress Test Request Exams 08/21/22 06:49 Completed ] Urgent XR chest 1V portable [id number] Stat Exams 08/20/22 10:17 Completed NM mindi perf SPECT r/s* [id number] Routine Nuc Med 08/21/22 07:00 Completed CV. echo complete* [id number] Routine Ultrasound 08/20/22 16:26 Completed Pending at discharge Category Date Time Status Cardiac Stress Test MIBI [Sestamibi Stress Test Request Exams 08/20/22 16:26 Stop Req ] Urgent Osmolality Urine Routine Lab 08/20/22 18:30 Received Urinalysis Routine Lab 08/20/22 17:29 Uncollected Radiology Impressions Chest X-Ray 08/20/22 10:17 IMPRESSION: 1. Mild cardiac enlargement unchanged. No acute cardiopulmonary process noted. 2. Widening of the superior mediastinum with leftward deviation of the trachea suggesting a mediastinal mass. The appearance shows little change since 05/30/2017. This may be a chronic finding such as a goiter. Contrast CT scanning of the chest might be considered for further workup. Chest CT 08/20/22 16:29 IMPRESSION: 1. Responsible for the history there is a 5 cm right thyroid mass. This needs to be worked up. Consider need for ultrasound and/or FNA. This causes mild leftward tracheal deviation but no real compression. No overt lymphadenopathy seen. 2. Nothing else acute is visualized. Full details are given above. 3. 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 COMMENTS: Consistent with the [employer]'s Incidental Findings Committee white paper (J Am Gudelia Radiol 2015): In patients aged 35 years and older with an incidental thyroid nodule equal to or greater than 1.[address], MRI or extrathyroidal US, further evaluation with dedicated thyroid US is recommended for patients with normal life expectancy and without comorbidities. For smaller nodules without suspicious features, no further evaluation or follow up is recommended. Laboratory Results WBC 4.3 10^3/uL (4.0-10.0) 08/20/22 10:35 RBC 4.06 10^6/uL (4.1-5.3) L 08/20/22 10:35 Hgb 12.8 g/dL (11.7-16.6) 08/20/22 10:35 Hct 37.2 % (42.0-52.0) L 08/20/22 10:35 MCV 91.6 fl (80-94) 08/20/22 10:35 MCH 31.5 pg (28.0-34.0) 08/20/22 10:35 MCHC 34.4 g/dL (30.0-36.0) 08/20/22 10:35 RDW 11.9 % (12.1-15.1) L 08/20/22 10:35 Plt Count 186 10^3/cmm (130-400) 08/20/22 10:35 MPV 10.1 fL (7.4-10.4) 08/20/22 10:35 Neut % (Auto) 66.3 % 08/20/22 10:35 Lymph % (Auto) 25.3 % 08/20/22 10:35 Bledsoe % (Auto) 7.2 % 08/20/22 10:35 Eos % (Auto) 0.2 % 08/20/22 10:35 Baso % (Auto) 0.5 % 08/20/22 10:35 Neut # (Auto) 2.85 10^3/uL (1.8-7.7) 08/20/22 10:35 Lymph # (Auto) 1.1 10^3/uL (0.8-4.8) 08/20/22 10:35 Bledsoe # (Auto) 0.3 10^3/uL (0.2-0.9) 08/20/22 10:35 Eos # (Auto) 0.0 10^3/uL (0.0-0.8) 08/20/22 10:35 Baso # (Auto) 0.0 10^3/uL (0.0-0.1) 08/20/22 10:35 Nucleated RBC % (auto) 0 % 08/20/22 10:35 Nucleated RBCs # 0.0 /100WBC 08/20/22 10:35 PT 14.90 SECONDS (12.1-14.9) 08/21/22 04:55 INR 1.14 (0.8-1.2) 08/21/22 04:55 APTT 36.6 SECONDS (23.9-36.7) 08/21/22 04:55 Sodium 135 mmol/L (136-145) L 08/21/22 04:15 Potassium 4.5 mmol/L (3.5-5.1) 08/21/22 04:15 Chloride 104 mmol/L (98-107) 08/21/22 04:15 Carbon Dioxide 22 mmol/L (22-29) 08/21/22 04:15 Anion Gap 13.5 (5-19) 08/21/22 04:15 BUN 17 mg/dL (8-23) 08/21/22 04:15 Creatinine 1.1 mg/dL (0.7-1.2) 08/21/22 04:15 GFR Calculation Not Reportable 08/21/22 04:15 Glucose 98 mg/dL (65-115) 08/21/22 04:15 Calculated Osmolality 282 mOsm/kg (285-295) L 08/21/22 04:15 Uric Acid 6.4 mg/dL (3.4-7.0) 08/20/22 12:30 Calcium 9.3 mg/dL (8.5-10.5) 08/21/22 04:15 Phosphorus 3.1 mg/dL (2.5-4.5) 08/21/22 04:15 Magnesium 2.1 mg/dL (1.7-2.3) 08/21/22 04:15 Total Bilirubin 0.5 mg/dL (0.15-1.2) 08/21/22 04:15 AST 21 U/L (0-40) 08/21/22 04:15 ALT 16 U/L (0-41) 08/21/22 04:15 Alkaline Phosphatase 43 U/L (40-130) 08/21/22 04:15 Troponin T Baseline 18 ng/L (0-15) H 08/20/22 10:35 Troponin T 120 Minute 22.94 ng/L (0-15) H 08/20/22 12:30 Delta Troponin T 4.94 ABS# (0-10) 08/20/22 12:30 Troponin T Hi Sens 6Hr 16.98 ng/L (0-15) H 08/20/22 16:22 Troponin T Hi Sens 6Hr Delta -1.02 ng/L (0-12) L 08/20/22 16:22 NT-Pro-B Natriuret Pep 181 pg/mL (0-450) 08/20/22 12:30 Total Protein 8.2 g/dL (6.6-8.7) 08/21/22 04:15 Albumin 3.5 g/dL (3.5-5.2) 08/21/22 04:15 Globulin 4.7 g/dL (1.3-4.6) H 08/21/22 04:15 Triglycerides 93 mg/dL (0-150) 08/21/22 04:15 Cholesterol 176 mg/dL (0-200) 08/21/22 04:15 LDL Cholesterol, Calc 128 mg/dL (50-129) 08/21/22 04:15 HDL Cholesterol 29 mg/dL (60-100) L 08/21/22 04:15 LDL/HDL Ratio 4.41 RATIO (0.00-3.22) H 08/21/22 04:15 Cholesterol/HDL Ratio 6.07 mg/dL (1.0-5.00) H 08/21/22 04:15 TSH 7.25 uIU/mL (0.27-4.20) H 08/21/22 04:15 Ur Random Sodium 69 mmol/L 08/20/22 18:30 Urine Creatinine 101 mg/dL (39-259) 08/20/22 18:30 Vitals Last Vital Signs Temp 97.9 F 08/21/22 11:55 Pulse 54 L 08/21/22 11:55 Resp 17 08/21/22 11:55 BP 102/59 08/21/22 11:55 Pulse Ox 97 08/21/22 11:55 O2 Del Method 08/21/22 11:55 Discharge Plan Discharge Patient Disposition: Home Condition: Stable Prescriptions: New amlodipine 10 mg Tablet 10 mg PO DAILY Qty: 30 0RF Continued nitroglycerin [Nitrostat] 0.4 mg tablet, sublingual 0.4 mg SUBLINGUAL Q5M PRN (Reason: Chest Pain) Rx Instructions: do not exceed 3 doses per episode metoprolol tartrate 25 mg tablet 12.5 mg PO BID Discontinued aspirin 325 mg tablet 325 mg PO DAILY amlodipine 10 mg tablet See Rx Instructions .ROUTE .COMPLEX Rx Instructions: TAKE 1 TABLET BY MOUTH EVERY MORNING AND ONE-HALF TABLET EVERY NIGHT AT BEDTIME Discharge Orders: Discharge Order (Routine); Ordered 08/21/22 Ordered By: Yonatan Posada Referrals: Yarelis Murray FNP [Primary Care Provider] - 4-7 days (BMP on follow-up) Mila Allan MD [Physician] - 2 weeks (Follow-up after hospitalization for chest pain) Diego Morris MD [Physician] - 1 week (Mediastinal mass, thyroid) Discharge Diet: Cardiac Discharge Activity: Increase activity as tolerated Patient Instructions: Amlodipine (By mouth), Opioid Safety Activity Restrictions/Additional Instructions: Take all medicine as prescribed Follow-up with Dr. Morris, ENT, for your thyroid mass in your mediastinum Follow-up with your primary care provider 3 to 5 days with a BMP to recheck your sodium Follow-up with cardiology in 2 weeks Note your Norvasc has been decreased to 10 mg once daily. Keep track of your blood pressures to bring to your primary care, and cardiology appointments Return for any concerns Patient's Health Concerns: Chest discomfort Assessment: Unlikely cardiac. Nuclear stress test normal. Echocardiogram without wall motion abnormality Plan of Treatment: Continue current medications, reduce Norvasc Mediastinal mass, thyroid identified and ENT referral will be placed Goals: No recurrence of discomfort Discharge Attestations Time Spent in Discharge Care*: greater than 30 min Quality Metrics Clinical Quality Measures [ No reported AMI, CVA or VTE this stay] Coding Level of Care Code Acute Chg FW DC note Diagnoses Chest pain R07.9 Mediastinal widening R93.89 Hyponatremia with decreased serum osmolality E87.1 Benign essential HTN I10 Atrial fibrillation I48.0 Atrial fibrillation type: paroxysmal
[2022-08-21 14:00] VITALS: PULSE 50
[2022-08-22 15:31] LABS: Osmolality Urine 435 mOsm/kg (50-1200)
== END 2022-08-21 14:35 | disposition home or self-care (01) ==
LOC: ER 17:09 → MEDSURG 17:20
PROVIDERS: Admitting Provider Hospitalist; Emergency Provider Family Medicine; PCP Nurse Practitioner Family; Visit Provider Internal Medicine
DX: R07.89 Other chest pain (principal); R93.89 Abnormal findings on diagnostic imaging of other specified body structures; E87.1 Hypo-osmolality and hyponatremia; I10 Essential (primary) hypertension; I48.0 Paroxysmal atrial fibrillation; Z82.49 Family history of ischemic heart disease and other diseases of the circulatory system; Z87.891 Personal history of nicotine dependence
CPT/HCPCS: 36415; 71045; 71260; 78452; 80053; 80061; 82575; 83735; 83880; 83935; 84100; 84300; 84443; 84484; 84550; 85025; 85610; 85730; 90471; 90686; 93005; 93017; 93306; 96372; 96374; 99285; A9500; G0378; J1650; J2785; Q9967

== ENCOUNTER → 2022-09-12 08:29 | Outpatient (BNVA) | payer MEDICARE, SELFPAY | PROVIDERS: PCP Nurse Practitioner Family; Visit Provider Nurse Practitioner Family | DX: R07.9 Chest pain, unspecified (principal); E04.1 Nontoxic single thyroid nodule; Z87.891 Personal history of nicotine dependence; E07.89 Other specified disorders of thyroid | CPT/HCPCS: 99203; 99213 ==

== ENCOUNTER 2022-10-30 12:14 | Outpatient (CLI) | payer MEDICARE, SELFPAY ==
--- NOTE | 2022-10-30 13:00 | US_ITS ---
WS: [id number] ULTRASOUND-GUIDED RIGHT THYROID NODULE FNA HISTORY: RIGHT thyroid nodule. Procedure, risks, and complications were explained to the patient. Consent has been obtained. There is a very large mixed cystic and solid RIGHT thyroid nodule which was described on a chest CT o f 08/20/2022. This mass measures approximately 3.9 x 3.6 cm and there is increased vascularity. Biops y has been recommended and requested. The skin is cleansed with ChloraPrep and anesthetized with 1% buffered lidocaine. FNA performed with 25 gauge needles. chemical engineering technologist is present to fix slides. US/US biopsy/FNA thyroid [id number] IMPRESSION: Uncomplicated FNA of a RIGHT thyroid nodule. Final pathology results pending.
== END 2022-10-30 12:15 | disposition home or self-care (01) ==
LOC: RAD 12:18
PROVIDERS: Visit Provider Otolaryngology
DX: E04.1 Nontoxic single thyroid nodule (principal)
CPT/HCPCS: 10005; 88173

== ENCOUNTER → 2022-11-14 15:10 | Outpatient (BNVA) | payer MEDICARE, SELFPAY | PROVIDERS: Visit Provider Otolaryngology | DX: E04.1 Nontoxic single thyroid nodule (principal) | CPT/HCPCS: 99213 ==

== ENCOUNTER → 2023-05-17 08:01 | Outpatient (BNVA) | payer MEDICARE, SELFPAY | PROVIDERS: PCP Nurse Practitioner Family; Visit Provider Otolaryngology | DX: E04.1 Nontoxic single thyroid nodule (principal) | CPT/HCPCS: 99212 ==

== ENCOUNTER 2023-05-30 15:32 | Outpatient (CLI) | payer MEDICARE, SELFPAY ==
--- NOTE | 2023-05-30 16:00 | US_ITS ---
WS: [id number] THYROID ULTRASOUND HISTORY: thyroid nodule COMPARISON: 10/30/2022 Right lobe: 4.0 cm x 4.2 cm x 6.0 cm (w x ap x l). Volume: 52.7 cm3. Markedly enlarged thyroid. There is a large mass containing cystic components involving a large porti on of the RIGHT thyroid. Mass measures at least 4.0 x 4.2 x 6.0 cm. Left lobe: 1.3 cm x 1.1 cm x 3.7 cm (w x ap x l). Volume: 2.7 cm3. Hypoechoic nodule involving the superior thyroid measures 1.0 x 0.9 x 0.7 cm. No calcifications or ec hogenic foci. Isthmus: 0.3 cm. IMPRESSION: 1. Large RIGHT thyroid mass with cystic components. Prior biopsy was performed on 10/30/2022. Mass pleitez s not appear significantly increased in size. 2. LEFT thyroid nodule with a maximum diameter 1.0 cm.
== END 2023-05-30 15:33 | disposition home or self-care (01) ==
PROVIDERS: PCP Nurse Practitioner Family; Visit Provider Otolaryngology
DX: E04.1 Nontoxic single thyroid nodule (principal); E07.89 Other specified disorders of thyroid
CPT/HCPCS: 76536

== ENCOUNTER → 2023-06-24 15:02 | Outpatient (BNVA) | payer MEDICARE, SELFPAY | PROVIDERS: PCP Nurse Practitioner Family; Visit Provider Otolaryngology | DX: E04.1 Nontoxic single thyroid nodule (principal); E07.89 Other specified disorders of thyroid | CPT/HCPCS: 99212 ==

== ENCOUNTER → 2023-08-12 15:21 | Outpatient (BNVA) | payer MEDICARE, SELFPAY | PROVIDERS: PCP Nurse Practitioner Family; Visit Provider Internal Medicine Cardiovascular Disease | DX: I48.0 Paroxysmal atrial fibrillation (principal); I10 Essential (primary) hypertension; R77.8 Other specified abnormalities of plasma proteins; Z87.898 Personal history of other specified conditions; Z87.891 Personal history of nicotine dependence | CPT/HCPCS: 99214 ==